=== PATIENT | female | born 1985 | race Caucasian/White ===

== ENCOUNTER → 2018-01-13 | Outpatient (CLI) | payer OTHER ==
[~2018-01-13] MED LIST: AMOCLA875 PO; AZIT500 PO; Bactrim Ds Tab1 EACH PO; CIPR500 PO; CLON.5 PO; CLON1 PO; CYCL10 PO; GABA300 PO; GABA600 PO; HYDACE5 PO; HYDCOR2.5B TOP; HYDHCL25 PO; LIDO2L PO; MUPI2TO TOP; NORT10 PO; PENVK500 PO; PHENA200 PO; SERT50 PO; SULTRISS PO; Ultram50 MG PO
[2018-01-13 20:29] LABS: Follicle Stimulating Hormone 3.1 mIU/ml; Luteinizing Hormone 10.6 mIU/ml; Progesterone 9.77 ng/mL
== END ==
LOC: LAB SHORT 14:27 → LAB 14:27
PROVIDERS: Registered Nurse Community Health
DX: R94.6 Abnormal results of thyroid function studies (principal); R63.5 Abnormal weight gain
CPT/HCPCS: 83001; 83002; 84144

== ENCOUNTER 2018-10-06 12:27 | Emergency (ER) | payer OTHER ==
[~2018-10-06] VITALS: Ht 160 cm; Wt 108.9 kg
[2018-10-06] MEDS ORDERED: TOPI50 PO (12:53)
[2018-10-06] MEDS ORDERED: NAPR500 PO (12:53)
[2018-10-06] MEDS ORDERED: TRAM50 PO (12:53)
[2018-10-06] MEDS ORDERED: Norco 5-325 Ta1 EACH PO (12:54)
[2018-10-06] MEDS ORDERED: OLAN2.5 PO (12:54)
[2018-10-06] MEDS ORDERED: GABA600 PO (12:54)
[2018-10-06] MEDS ORDERED: Budeprion Xl300 MG PO (12:54)
[2018-10-06] MEDS ORDERED: AMIT50 PO (12:55)
[2018-10-06] MEDS ORDERED: ESCI20 PO (12:55)
[2018-10-06] MEDS ORDERED: Mobic15 MG PO (12:55)
[2018-10-06] MEDS ORDERED: LIDO700A20 TOP (14:07)
[2018-10-06] MEDS ORDERED: Robaxin500 MG PO (14:07)
== END 2018-10-06 14:12 | disposition home or self-care (01) ==
LOC: ER 12:27
DX: G89.29 Other chronic pain (principal); M54.5 Low back pain; Z88.8 Allergy status to other drugs, medicaments and biological substances; Z79.899 Other long term (current) drug therapy; F32.9 Major depressive disorder, single episode, unspecified; F41.9 Anxiety disorder, unspecified; F17.210 Nicotine dependence, cigarettes, uncomplicated
CPT/HCPCS: 99283

== ENCOUNTER → 2019-06-29 | Outpatient (CLI) | payer OTHER ==
[~2019-06-29] MED LIST changes: +AMIT50 PO; +Budeprion Xl300 MG PO; +ESCI20 PO; +LIDO700A20 TOP; +METPRE4DP PO; +Mobic15 MG PO; +NAPR500 PO; +Norco 5-325 Ta1 EACH PO; +OLAN2.5 PO; +Robaxin500 MG PO; +TOPI50 PO; +TRAM50 PO
[2019-07-05 15:07] LABS: HPV 16 Negative (Negative); HPV 18 Negative (Negative); HPV OTHER HR TYPES Negative (Negative)
== END ==
LOC: LAB UCHC 16:40 → LAB SHORT 16:40
PROVIDERS: Registered Nurse Community Health
DX: Z12.4 Encounter for screening for malignant neoplasm of cervix (principal)
CPT/HCPCS: 87624; G0123

== ENCOUNTER → 2020-02-03 | Outpatient (CLI) | payer OTHER ==
[2020-02-03 17:36] LABS: BASOPHILS ABSOLUTE AUTO 0.06 K/mm3 (0.00-0.23); BASOPHILS PERCENT AUTO 1 % (0-2); EOSINOPHILS ABSOLUTE AUTO 0.24 K/mm3 (0.00-0.68); EOSINOPHILS PERCENT AUTO 2 % (0-6); Hematocrit 39.3 % (33.0-51.0); IMMATURE GRAN ABSOLUTE AUTO 0.06 K/mm3 (0.00-0.10); IMMATURE GRAN PERCENT AUTO 1 % (0-1); LYMPHOCYTES ABSOLUTE AUTO 2.68 K/mm3 (0.84-5.20); LYMPHOCYTES PERCENT AUTO 26 % (21-46); MONOCYTES ABSOLUTE AUTO 0.75 K/mm3 (0.16-1.47); MONOCYTES PERCENT AUTO 7 % (4-13); Mean Corpuscular HGB 30.7 pg (26.0-34.0); Mean Corpuscular HGB Conc 33.1 g/dL (31.5-36.5); Mean Corpuscular Volume 93 fL (80-100); Mean Platelet Volume 8.7 fL (9.1-12.4); NEUTROPHILS ABSOLUTE AUTO 6.69 K/mm3 (1.96-9.15); NEUTROPHILS PERCENT AUTO 64 % (41-73); Platelet Count 360 K/mm3 (150-400); RDW Coefficient Variation 13.2 % (11.7-14.2); RDW Standard Deviation 45.1 fL (35.1-46.3); Red Blood Cell Count 4.23 M/mm3 (3.80-5.20); White Blood Cell Count 10.48 K/mm3 (4.00-11.30)
[2020-02-03 18:18] LABS: Percent Saturation 20.7 % (15.0-50.0)
[2020-02-03 18:40] LABS: Alanine Aminotransfer (ALT/SGP 50 U/L (12-78); Albumin, Blood 3.7 g/dL (3.4-5.0); Albumin/Globulin Ratio 1.2 (0.8-1.8); Alk Phos 93 U/L (50-136); Anion Gap 7 mmol/L (6-16); Aspartate Aminotrans (AST/SGOT 21 U/L (12-37); Bilirubin, Total 0.3 mg/dL (0.1-1.0); Blood Urea Nitrogen 9 mg/dL (8-24); Bun/Creatinine Ratio 21.3 (12.0-20.0); CO2, Blood 24 mmol/L (21-32); Calcium, Blood 8.5 mg/dL (8.5-10.1); Chloride, Blood 106 mmol/L (98-108); Creatinine, Blood 0.42 mg/dL (0.40-1.00); Globulin, Blood 3.2 g/dL (2.2-4.0); Glomerular Filtration Rate >60 (60-); Glucose, Blood 91 mg/dL (70-99); Potassium, Blood 3.8 mmol/L (3.5-5.5); Sodium, Blood 137 mmol/L (136-145); Total Protein, Blood 6.9 g/dL (6.4-8.2)
== END | disposition home or self-care (01) ==
LOC: LAB SHORT 16:15 → LAB 16:15
PROVIDERS: Nurse Practitioner Family
DX: Z11.59 Encounter for screening for other viral diseases (principal); D50.9 Iron deficiency anemia, unspecified; R53.81 Other malaise; R53.83 Other fatigue
CPT/HCPCS: 80053; 82728; 83540; 83550; 84439; 84443; 85025; 86803

== ENCOUNTER 2020-11-08 04:53 | Emergency (ER) | payer OTHER | END 2020-11-08 06:30 | disposition left against medical advice (07) | LOC: ER 04:53 | DX: Z53.21 Procedure and treatment not carried out due to patient leaving prior to being seen by health care provider (principal) ==

== ENCOUNTER → 2021-06-07 | Outpatient (CLI) | payer OTHER ==
[2021-06-07 19:19] LABS: BASOPHILS ABSOLUTE AUTO 0.04 K/mm3 (0.00-0.23); BASOPHILS PERCENT AUTO 1 % (0-2); EOSINOPHILS ABSOLUTE AUTO 0.21 K/mm3 (0.00-0.68); EOSINOPHILS PERCENT AUTO 3 % (0-6); Hematocrit 42.3 % (33.0-51.0); Hemoglobin 14.5 g/dL (11.5-16.0); IMMATURE GRAN ABSOLUTE AUTO 0.03 K/mm3 (0.00-0.10); IMMATURE GRAN PERCENT AUTO 0 % (0-1); LYMPHOCYTES ABSOLUTE AUTO 2.96 K/mm3 (0.84-5.20); LYMPHOCYTES PERCENT AUTO 44 % (21-46); MONOCYTES ABSOLUTE AUTO 0.58 K/mm3 (0.16-1.47); MONOCYTES PERCENT AUTO 9 % (4-13); Mean Corpuscular HGB 30.3 pg (26.0-34.0); Mean Corpuscular HGB Conc 34.3 g/dL (31.5-36.5); Mean Corpuscular Volume 89 fL (80-100); Mean Platelet Volume 9.1 fL (9.1-12.4); NEUTROPHILS ABSOLUTE AUTO 2.88 K/mm3 (1.96-9.15); NEUTROPHILS PERCENT AUTO 43 % (41-73); Platelet Count 373 K/mm3 (150-400); RDW Coefficient Variation 12.9 % (11.7-14.2); RDW Standard Deviation 42.1 fL (35.1-46.3); Red Blood Cell Count 4.78 M/mm3 (3.80-5.20)
[2021-06-07 19:35] LABS: Alanine Aminotransfer (ALT/SGP 27 U/L (12-78); Albumin, Blood 3.5 g/dL (3.4-5.0); Albumin/Globulin Ratio 0.9 (0.8-1.8); Alk Phos 66 U/L (50-136); Anion Gap 6 mmol/L (6-16); Aspartate Aminotrans (AST/SGOT 8 U/L (12-37); Bilirubin, Total 0.2 mg/dL (0.1-1.0); Blood Urea Nitrogen 11 mg/dL (8-24); Bun/Creatinine Ratio 22.7 (12.0-20.0); CHOL/HDL RATIO 3.5; CO2, Blood 25 mmol/L (21-32); Calcium, Blood 9.1 mg/dL (8.5-10.1); Chloride, Blood 111 mmol/L (98-108); Cholesterol 193 mg/dL (50-200); Creatinine, Blood 0.48 mg/dL (0.40-1.00); Globulin, Blood 3.7 g/dL (2.2-4.0); Glomerular Filtration Rate >60 (60-); Glucose, Blood 88 mg/dL (70-99); HDL Cholesterol 55 mg/dL (>39); LDL/HDL RATIO 2.1; Low Density Lipoprotein Chol 116 mg/dL (0-110); Potassium, Blood 4.2 mmol/L (3.5-5.5); Sodium, Blood 142 mmol/L (136-145); Total Protein, Blood 7.2 g/dL (6.4-8.2); Triglycerides 111 mg/dL (30-140); Very Low Density Lipoprot Chol 22 mg/dL (6-28)
[2021-06-08 09:09] LABS: HIV SCREEN 4TH GENERATION WRFX Non Reactive (Non Reactive)
== END ==
LOC: LAB SHORT 18:59 → LAB 18:59
PROVIDERS: Nurse Practitioner Family
DX: Z11.4 Encounter for screening for human immunodeficiency virus [HIV] (principal)
CPT/HCPCS: 80053; 80061; 84443; 85025; 87389

== ENCOUNTER → 2022-10-23 | Outpatient (CLI) | payer OTHER ==
[2022-10-24 15:07] LABS: HPV 16 Negative (Negative); HPV 18 Negative (Negative); HPV OTHER HR TYPES Negative (Negative)
== END ==
LOC: RAD SHORT 09:20
PROVIDERS: Registered Nurse Community Health
DX: Z12.4 Encounter for screening for malignant neoplasm of cervix (principal)
CPT/HCPCS: 87624; G0145

== ENCOUNTER → 2023-02-28 | Outpatient (CLI) | payer OTHER ==
[~2023-02-28] MED LIST changes: +Acetaminophen650 M1 PO; +BENADRYL25 MG PO
[2023-03-01 12:26] LABS: Candida species (DNA Probe) Negative (NEGATIVE); G. vaginalis (DNA Probe) Positive (NEGATIVE); T. vaginalis (DNA Probe) Negative (NEGATIVE)
== END | disposition home or self-care (01) ==
LOC: LAB SHORT 12:58 → LAB 12:58
PROVIDERS: Registered Nurse Community Health
DX: N89.8 Other specified noninflammatory disorders of vagina (principal)
CPT/HCPCS: 87480; 87510; 87660

== ENCOUNTER 2023-03-06 11:28 | Emergency (ER) | payer OTHER ==
[~2023-03-06] VITALS: Ht 160 cm; Wt 86.6 kg
[~2023-03-06 11:28] MED LIST changes: -Acetaminophen650 M1 PO; -BENADRYL25 MG PO
[2023-03-06 11:57] VITALS: BP 120/77
[2023-03-06 14:20] LABS: Influenza A, PCR NEGATIVE (NEGATIVE); Influenza B, PCR NEGATIVE (NEGATIVE); Resp Syncytial Virus, PCR NEGATIVE (NEGATIVE); SARS-Cov-2 (COVID-19) PCR, MMC NEGATIVE (NEGATIVE)
[2023-03-06] MEDS ORDERED: BENADRYL25 MG PO (15:11)
[2023-03-06] MEDS ORDERED: Acetaminophen650 M1 PO (15:11)
== END 2023-03-06 15:38 | disposition home or self-care (01) ==
LOC: ER 11:28
PROVIDERS: Physician Assistant
DX: B34.9 Viral infection, unspecified (principal); Z88.8 Allergy status to other drugs, medicaments and biological substances; Z79.899 Other long term (current) drug therapy; F17.210 Nicotine dependence, cigarettes, uncomplicated
CPT/HCPCS: 0241U; 99283; A9270

== ENCOUNTER → 2023-04-15 | Outpatient (CLI) | payer OTHER ==
[~2023-04-15] MED LIST changes: +Acetaminophen650 M1 PO; +BENADRYL25 MG PO
[2023-04-17 23:08] LABS: HSV-1 DNA Negative (Negative); HSV-2 DNA Negative (Negative)
== END | disposition home or self-care (01) ==
LOC: LAB SHORT 13:30 → LAB 13:30
PROVIDERS: Registered Nurse Community Health
DX: N90.89 Other specified noninflammatory disorders of vulva and perineum (principal)
CPT/HCPCS: 87529

== ENCOUNTER → 2023-06-17 | Outpatient (CLI) | payer OTHER ==
[2023-06-17 15:49] LABS: Candida species (DNA Probe) Negative (NEGATIVE); G. vaginalis (DNA Probe) Positive (NEGATIVE); T. vaginalis (DNA Probe) Negative (NEGATIVE)
== END | disposition home or self-care (01) ==
LOC: LAB SHORT 11:25 → LAB 11:25
PROVIDERS: Registered Nurse Community Health
DX: N89.8 Other specified noninflammatory disorders of vagina (principal)
CPT/HCPCS: 87480; 87510; 87660

== ENCOUNTER 2023-10-26 15:51 | Emergency (ER) | payer OTHER ==
[~2023-10-26] VITALS: Ht 160 cm; Wt 97.5 kg
[~2023-10-26 15:51] MED LIST changes: +FLONASE ALLERG9.9 ML
[2023-10-26 16:01] VITALS: BP 155/92
[2023-10-26] MEDS ORDERED: IBUP400 PO (16:46)
[2023-10-26] MEDS ORDERED: HyDROXyzine HCl 25 MG Tab PO ONE (16:50)
[2023-10-26] MEDS ORDERED: DULoxetine HCL 30 MG Cap DR PO ONE (16:50)
[2023-10-26] MEDS ORDERED: DULO30 PO (17:42)
[2023-10-26] MEDS ORDERED: HYDHCL25 PO (17:42)
== END 2023-10-26 17:47 | disposition home or self-care (01) ==
LOC: ER 15:51
DX: F32.9 Major depressive disorder, single episode, unspecified (principal); F43.22 Adjustment disorder with anxiety; Z88.8 Allergy status to other drugs, medicaments and biological substances; Z79.899 Other long term (current) drug therapy; F17.210 Nicotine dependence, cigarettes, uncomplicated
CPT/HCPCS: 99283; A9270

== ENCOUNTER 2023-12-26 12:58 | Emergency (ER) | payer OTHER ==
[~2023-12-26] VITALS: Ht 160 cm; Wt 99.8 kg
[~2023-12-26 12:58] MED LIST changes: +DULO30 PO; +IBUP400 PO
[2023-12-26 13:10] VITALS: BP 129/83
[2023-12-26] MEDS ORDERED: HYDR1TAB94 PO (14:30)
== END 2023-12-26 14:43 | disposition home or self-care (01) ==
LOC: ER 12:58
DX: S93.401A Sprain of unspecified ligament of right ankle, initial encounter (principal); F17.210 Nicotine dependence, cigarettes, uncomplicated; W01.0XXA Fall on same level from slipping, tripping and stumbling without subsequent striking against object, initial encounter; Y92.480 Sidewalk as the place of occurrence of the external cause; Z79.899 Other long term (current) drug therapy; Z88.1 Allergy status to other antibiotic agents; Z88.8 Allergy status to other drugs, medicaments and biological substances
CPT/HCPCS: 29515; 73610; 99283-25

== ENCOUNTER → 2024-02-25 | Outpatient (CLI) | payer OTHER ==
[~2024-02-25] MED LIST changes: +HYDR1TAB94 PO
== END | disposition home or self-care (01) ==
LOC: LAB 12:39 → LAB SHORT 12:39
DX: J02.9 Acute pharyngitis, unspecified (principal)
CPT/HCPCS: 87081